=== PATIENT | male | born 1955 | race Caucasian/White ===

== ENCOUNTER 2021-07-28 10:30 | Inpatient (IN) | payer OTHER ==
[2021-07-16 15:49] VITALS: BMI 30.2
[2021-07-31] MEDS ORDERED: VANCOMYCIN 1,000 MG VIAL (RESTRICTED TO ID ONLY) ONE (07:45)
[2021-07-31] MEDS ORDERED: MIDAZOLAM HCL 2 MG/2 ML SINGLE DOSE VIAL ONE (08:24)
[2021-07-31] MEDS ORDERED: BUPIVACAINE HCL/PF 0.5% (5 MG/ML) 30 ML VIAL IJ ONE (08:32)
[2021-07-31] MEDS ORDERED: BUPIVICAINE 0.25%/MORPH PF/KETOROLAC - 51ML DISP.SYRINGE IA ONE (08:44)
[2021-07-31] MEDS ORDERED: MAG HYDROX/AL HYDROX/SIMETH 30 ML UNIT-DOSE CUP PO PRN (08:51)
[2021-07-31] MEDS ORDERED: ONDANSETRON 4 MG/2 ML VIAL IVPUSH PRN ×2 (08:51→12:33)
[2021-07-31] MEDS ORDERED: MAGNESIUM HYDROX 2400MG/30ML ORAL SUSPENSION 30 ML CUP PO PRN (08:51)
[2021-07-31] MEDS ORDERED: LACTATED RINGERS SOLUTION 1,000 ML IV SCH (09:00)
[2021-07-31] MEDS ORDERED: PROPOFOL 20 ML ONE ×4 (09:28→11:24)
[2021-07-31] MEDS ORDERED: ONDANSETRON 4 MG/2 ML VIAL ONE (09:42)
[2021-07-31] MEDS ORDERED: ceFAZolin SODIUM 1 GM VIAL ONE ×3 (09:42→21:37)
[2021-07-31] MEDS ORDERED: TRANEXAMIC ACID 1000 MG/10 ML VIAL ONE ×2 (09:42→11:09)
[2021-07-31] MEDS ORDERED: oxyCODONE HCL 5 MG TABLET PO PRN ×2 (12:33)
[2021-07-31] MEDS ORDERED: ACETAMINOPHEN INJECTION 100 ML IVPB ONE (12:51)
[2021-07-31] MEDS: ACETAMINOPHEN 500 MG TABLET (FP) PO SCH ×2 (12:53→22:13)
[2021-07-31] MEDS ORDERED: DEXTROSE 5%-WATER - 50 ML IVPB ONE ×2 (16:12→21:37)
[2021-07-31] MEDS: CEFAZOLIN 2 GM in DEXTROSE 5%-WATER - 50 ML IVPB SCH (16:33)
[2021-07-31] MEDS: INSULIN (NOVOLOG) ASPART 100 UNITS/ML 10ML VIAL SQ SCH ×2 (16:33→22:23)
[2021-07-31] MEDS: SENNOSIDES/DOCUSATE COMBO (SENNA PLUS) TABLET (UD) PO SCH ×2 (19:18→22:15)
[2021-07-31] MEDS: PANTOPRAZOLE 40 MG TABLET PO SCH (19:18)
[2021-07-31] MEDS: GABAPENTIN 300 MG CAPSULE PO SCH ×2 (19:18→22:18)
[2021-07-31] MEDS: MULTIVITAMINS (DAILY MVI) TABLET (FP) PO SCH (19:18)
[2021-07-31] MEDS ORDERED: ATORVASTATIN CA 40 MG TABLET (FP) PO SCH (22:00)
[2021-07-31] MEDS: oxyCODONE HCL 10 MG SUSTAINED ACTING TABLET PO SCH (22:16)
[2021-08-01] MEDS: CEFAZOLIN 2 GM in DEXTROSE 5%-WATER - 50 ML IVPB SCH ×2 (01:11→10:23)
[2021-08-01] MEDS: ACETAMINOPHEN 500 MG TABLET (FP) PO SCH ×2 (04:11→10:23)
[2021-08-01 06:29] VITALS: BP 126/67; PULSE 89; TEMP 98.9
[2021-08-01] MEDS: INSULIN (NOVOLOG) ASPART 100 UNITS/ML 10ML VIAL SQ SCH (06:33)
[2021-08-01 08:27] LABS: CALCIUM 8.7 mg/dl (8.5-10); CREATININE 0.9 mg/dl (0.55-1.3)
[2021-08-01 09:43] LABS: HEMATOCRIT 37.6 % (35.4-49); HEMOGLOBIN 12.5 GM/dL (11.7-16.9); MCH 29.7 pg (25.7-33.7); MCHC 33.2 g/dl (32.0-35.9); MEAN CELL VOLUME 89.6 fl (80-96); MEAN PLT VOLUME 8.2 fl (7.5-11.1); PLATELET COUNT 164 10^3/uL (134-434); RBC 4.19 M/mm3 (4.00-5.60); WHITE BLOOD COUNT 8.7 K/mm3 (4.0-10.0)
[2021-08-01] MEDS ORDERED: LOSARTAN POTASSIUM 50 MG TABLET PO SCH (10:00)
[2021-08-01] MEDS ORDERED: ASPIRIN 325 MG TABLET PO SCH (10:00)
[2021-08-01] MEDS ORDERED: ceFAZolin SODIUM 1 GM VIAL ONE (10:17)
[2021-08-01] MEDS ORDERED: DEXTROSE 5%-WATER - 50 ML IVPB ONE (10:17)
[2021-08-01] MEDS: SENNOSIDES/DOCUSATE COMBO (SENNA PLUS) TABLET (UD) PO SCH (10:21)
[2021-08-01] MEDS: oxyCODONE HCL 10 MG SUSTAINED ACTING TABLET PO SCH (10:22)
[2021-08-01] MEDS: PANTOPRAZOLE 40 MG TABLET PO SCH (10:22)
[2021-08-01] MEDS: GABAPENTIN 300 MG CAPSULE PO SCH (10:23)
[2021-08-01] MEDS: MULTIVITAMINS (DAILY MVI) TABLET (FP) PO SCH (10:23)
== END 2021-08-01 12:40 | disposition home or self-care (01) | DRG 470 ==
LOC: FM/S 07-31 07:40
PROVIDERS: ADMIT Orthopaedic Surgery Sports Medicine; ATTEND Nurse Practitioner Acute Care
PROC: 8E0W0CZ Robotic Assisted Procedure of Trunk Region, Open Approach (ICD-10-PCS; 2021-07-31)
PROC: 0SRB0JZ Replacement of Left Hip Joint with Synthetic Substitute, Open Approach (ICD-10-PCS; principal; 2021-07-31 09:54)
DX: M16.12 Unilateral primary osteoarthritis, left hip (principal); I10 Essential (primary) hypertension; E78.5 Hyperlipidemia, unspecified; E11.9 Type 2 diabetes mellitus without complications
CPT/HCPCS: 36415; 73502-TC-LT-FY; 80048; 82962; 85027; 88305-TC; 88311-TC; 94010; 94760; 97010-GP; 97116-GP; 97161-GP

== ENCOUNTER 2024-09-26 10:00 | Emergency (ER) | payer OTHER ==
[2024-09-26 10:36] VITALS: BMI 32.3
[2024-09-26] MEDS ORDERED: ACETAMINOPHEN INJECTION 100 ML ONE (11:54)
[2024-09-26] MEDS: LACTATED RINGERS SOLUTION 1000 ML INFUS.BAG IV ONE (11:58)
[2024-09-26] MEDS: ACETAMINOPHEN 1000 MG/100 ML BAG IVPB ONE (11:58)
[2024-09-26 12:23] LABS: ABSOLUTE IMMATURE GRANULOCYTES 0.01 x10^3/uL (0.0-0.031); BASOPHILS # 0.04 x10^3/uL (0.01-0.08); EOSINOPHIL % 1.9 % (0.8-7.0); EOSINOPHILS # 0.11 x10^3/uL (0.04-0.54); HEMATOCRIT 47.5 % (40.1-51.0); HEMOGLOBIN 15.2 g/dL (13.7-17.5); MEAN CELL VOLUME 92.6 fl (79.0-92.2); MEAN PLT VOLUME 9.6 fl (9.4-12.4); MONOCYTE # 0.84 x10^3/uL (0.30-0.82); MONOCYTE % 14.8 % (5.3-12.2); PLATELET COUNT 173 x10^3/uL (163-337); RDW 12.3 % (12.2-16.4)
[2024-09-26 12:43] LABS: POTASSIUM 4.7 mmol/L (3.5-5.1)
[2024-09-26 12:45] LABS: CALCIUM 9.2 mg/dL (8.5-10.1)
[2024-09-26 12:46] LABS: BLOOD UREA NITROGEN 17.1 mg/dL (7-18); MAGNESIUM 2.2 mg/dL (1.8-2.4)
[2024-09-26 12:49] LABS: CREATININE 1.1 mg/dL (0.55-1.3)
[2024-09-26 12:50] LABS: BILIRUBIN,TOTAL 0.5 mg/dL (0.2-1); TOT PROT 7.3 g/dl (6.4-8.2)
[2024-09-26 13:41] LABS: HCV DIAGNOSTIC IN-HOUSE W/RFLX NON-REACTIVE (NONREACTIVE)
[2024-09-26 13:42] LABS: HIV INTERPRETATION NEGATIVE (NEGATIVE)
[2024-09-26 15:01] VITALS: TEMP 98
[2024-09-26 15:42] LABS: URINE APPEARANCE CLEAR; URINE BILIRUBIN NEGATIVE (NEGATIVE); URINE COLOR DK YELLOW; URINE GLUCOSE (UA) NEGATIVE (NEGATIVE); URINE KETONE TRACE (NEGATIVE); URINE LEUK ESTERASE NEGATIVE (NEGATIVE); URINE NITRITE NEGATIVE (NEGATIVE); URINE PROTEIN TRACE (NEGATIVE); URINE UROBILINOGEN 0.2 mg/dL (0.2-1.0)
[2024-09-26 15:59] VITALS: BP 103/77; PULSE 97; RESP 18
== END 2024-09-26 16:28 | disposition home or self-care (01) ==
LOC: JER 10:00
PROC: 3E033NZ Introduction of Analgesics, Hypnotics, Sedatives into Peripheral Vein, Percutaneous Approach (ICD-10-PCS; principal; 2024-09-26)
DX: R10.32 Left lower quadrant pain (principal); R19.7 Diarrhea, unspecified
CPT/HCPCS: 36415; 74177-TC; 80053; 81003; 83605; 83690; 83735; 85025; 86803; 87086; 87389; 93005; 93010; 96374; 99285-25; J0131

== ENCOUNTER 2024-09-28 11:37 | Emergency (ER) | payer OTHER ==
[2024-09-28 11:51] VITALS: BP 132/75; PULSE 57; RESP 20; TEMP 98.1; BMI 30.7
[2024-09-28] MEDS ORDERED: BISMUTH SUBSALICYLATE 262 MG/15 ML BTL PO ONE (13:18)
[2024-09-28] MEDS: BISMUTH SUBSALICYLATE 524 MG/30 ML PO ONE (13:55)
[2024-09-28 14:06] LABS: ABSOLUTE IMMATURE GRANULOCYTES 0.01 x10^3/uL (0.0-0.031); BASOPHILS # 0.03 x10^3/uL (0.01-0.08); EOSINOPHILS # 0.13 x10^3/uL (0.04-0.54); HEMATOCRIT 46.7 % (40.1-51.0); HEMOGLOBIN 15.5 g/dL (13.7-17.5); MCHC 33.2 g/dl (32.3-36.5); MEAN PLT VOLUME 9.1 fl (9.4-12.4); MONOCYTE # 0.76 x10^3/uL (0.30-0.82); MONOCYTE % 11.6 % (5.3-12.2); PLATELET COUNT 178 x10^3/uL (163-337); RDW 12.4 % (12.2-16.4)
[2024-09-28 14:39] LABS: ALBUMIN 3.9 g/dl (3.4-5.0); BLOOD UREA NITROGEN 17.1 mg/dL (7-18); CALCIUM 9.2 mg/dL (8.5-10.1)
[2024-09-28 14:40] LABS: MAGNESIUM 1.9 mg/dL (1.8-2.4)
[2024-09-28 14:43] LABS: CREATININE 1.1 mg/dL (0.55-1.3)
[2024-09-28 14:44] LABS: BILIRUBIN,TOTAL 0.5 mg/dL (0.2-1); TOT PROT 7.3 g/dl (6.4-8.2)
== END 2024-09-28 15:20 | disposition home or self-care (01) ==
LOC: JER 11:37
DX: R19.7 Diarrhea, unspecified (principal)
CPT/HCPCS: 36415; 80053; 83735; 85025; 99283-25